=== PATIENT | female | born 1965 | race Caucasian/White ===

== ENCOUNTER 2020-09-17 08:42 | Outpatient (CLI) | payer BC | END 2020-09-17 23:59 | disposition home or self-care (01) | LOC: RAD 08:42 | PROVIDERS: ATTEND Clinical Nurse Specialist | DX: K31.89 Other diseases of stomach and duodenum (principal); K31.4 Gastric diverticulum; K21.9 Gastro-esophageal reflux disease without esophagitis; K95.09 Other complications of gastric band procedure; K22.8 Other specified diseases of esophagus | CPT/HCPCS: 74240 ==